=== PATIENT | female | born 1955 | race Caucasian/White ===

== ENCOUNTER 2020-11-05 11:31 | Observation (INO) | payer BC ==
[~2020-11-05] VITALS: Ht 167.6 cm; Wt 88.2 kg
--- NOTE | ~2020-11-05 | HEMODYNAMI ---
PATIENT:ROYAL XIE MEDICAL RECORD: [id number] : 57 [id number] ADMISSION DATE: 11/05/20 Generatedon:113:51 Patient name: ROYAL XIE Patient #: [id number] : 1955 Date of study: 11/05/2020 Page: Of Hemodynamic Procedure Report Patient Data Patient Demographics Procedure consent was obtained First Name: ROYAL Gender: Female Last Name: ROJAS : 1955 Patient #: [id number] Age: 65 year(s) Race: SSN: [id number] Additional ID: [id number] Contact details [address]: [address] [place] [address] State: [place] City: [place] Zip code: [address] Admission Admission Data Admission Date: 11/05/2020 Admission Time: 11:31 Arrival Date: 11/05/2020 Arrival Time: 11:31 Admit Source: Other Insurance Payor: Private Room #: D.[id number] health insurance [facility] #: [id number] Procedure Procedure Types Cath Procedure Diagnostic Procedure LHC LH w/Coronaries FFR/IVUS FFR Initial Sedation Charges Moderate Sedation 25-39 minutes PCI Procedure Coronary Stent Coronary Stent Initial Hemochron ACT Test Procedure Description Procedure Date Procedure Date: 11/05/2020 Procedure Start Time: 13:16 Procedure End Time: 13:45 Procedure Staff Name Function Lincoln Randolph MD Performing Physician Renetta Murphy RT Monitor Cindy Zarate RT Scrub Sky Bullock RN Nurse Procedure Data Cath Procedure Fluoroscopy Diagnostic fluoroscopy Total fluoroscopy Time: 3.9 time: 3.9 min min Diagnostic fluoroscopy Total fluoroscopy dose: 912 dose: 912 mGy mGy Contrast Material Contrast Material Type Amount (ml) Isovue 300 912 Entry Location Entry Primary Successful Side Size Upsize Upsize Entry Closure Succes sful Closure Location (Fr) 1 (Fr) 2 (Fr) Remarks Device Remarks Femoral Right 5 Fr 6 Fr Exoseal artery Short Estimated blood loss: 5 ml Diagnostic catheters Device Type Used For End Catheter Placement MULTIPACK JL 4.0 5Fr Left Coronary catheter Angiography MULTIPACK 3DRC 5Fr Right Coronary catheter Angiography MULTIPACK Pigtail 5 Fr Multi-vessel catheter Angiography MULTIPACK 3DRC 5Fr Right Coronary catheter Angiography Procedure Complications No complications Procedure Medications Medication Administration Route Dosage 0.9% NaCl I.V. 100 ml/hr Oxygen etCO2 Nasal cannula 2 l/min Heparin Flush Bag added to field 2 bags (1000units/500ml NS) Lidocaine 2% added to field 20 Versed I.V. 1 mg Fentanyl I.V. 50 mcg Versed I.V. 1 mg Fentanyl I.V. 50 mcg Heparin Bolus I.V. 5000 units Integrilin (Bolus I.V. 7.9 ml 2mg/ml) Integrilin (Bolus wasted 2.1 ml 2mg/ml) Plavix P.O. 600 mg Hemodynamics Rest Heart Rate: 68 (bpm) Pressure Samples Time Site Value (mmHg) Purpose Heart Use Rate(bpm) 13:23 LV 114/29,33 Snapshot 70 13:23 AO 173/77(115) Pullback 64 Gradients Valve Time Site Site 2 Mean SEP/DFP Peak To Heart Use 1 (mmHg) (sec/min) Peak Rate (mmHg) (bpm) Aortic 13:23 LV AO 126 40 64 173/77(115) Calculations Valve P-P Mean Valve Index Valve Source Name Gradient Area Flow (cm2) Aortic 126 126 Snapshots Pre Cath Intra NCS Post Cath Vital Signs Time Heart Resp SPO2 etCO2 NIBP (mmHg) Rhythm Pain Sedation Rate (ipm) (%) (mmHg) Status Level (bpm) 13:03:13 66 13 100 42.3 133/68(104) NSR 0 (11) 10(A) , No pain 13:07:27 66 11 98 17.8 130/66(110) NSR 0 (11) 10(A) , No pain 13:11:39 64 14 98 17 127/68(107) NSR 0 (11) 10(A) , No pain 13:15:49 63 10 97 45.9 138/71(107) NSR 0 (11) 10(A) , No pain 13:20:05 68 15 98 44.5 136/64(98) NSR 0 (11) 10(A) , No pain 13:24:21 68 12 97 39.2 141/67(106) NSR 0 (11) 10(A) , No pain 13:28:39 66 12 98 39.2 132/63(116) NSR 0 (11) 10(A) , No pain 13:32:49 75 10 97 37 142/75(112) NSR 0 (11) 10(A) , No pain 13:37:42 69 10 98 44.4 131/70(95) NSR 0 (11) 10(A) , No pain 13:42:43 72 13 98 43 162/87(129) NSR 0 (11) 10(A) , No pain Medications Time Medication Route Dose Verified Delivered Reason Notes Effectiveness by by 13:02:47 0.9% NaCl I.V. 100 Sky Sky Per physician ml/hr Ara Bullock RN RN 13:02:56 Oxygen etCO2 2 Sky Sky for low 02 sats Nasal l/min Ara Bullock cannula RN RN 13:03:06 Heparin Flush added 2 Sky Sky used for Bag to bags rAa Bullock procedure (1000units/500ml RN RN NS) 13:03:16 Lidocaine 2% added 20ml Sky Sky for local to vial Lorry Bullock anesthetic RN RN 13:04:14 Versed I.V. 1 mg Sky Sky for sedation Ara Bullock RN RN 13:04:22 Fentanyl I.V. 50 Sky Sky for sedation mcg Ara Bullock RN RN 13:17:50 Versed I.V. 1 mg Sky Sky for sedation Ara Bullock RN RN 13:17:56 Fentanyl I.V. 50 Sky Sky for sedation mcg Ara Bullock RN RN 13:27:16 Heparin Bolus I.V. 5000 Sky Sky for units Ara Bullock anticoagulation RN RN 13:35:09 Integrilin I.V. 7.9 Sky Sky for (Bolus 2mg/ml) ml Ara Bullock antiplatelet RN RN therapy 13:35:25 Integrilin wasted 2.1 Sky Sky to sharp's (Bolus 2mg/ml) ml Ara Bullock RN RN 13:43:13 Plavix P.O. 600 Sky Sky for mg Ara Bullock antiplatelet RN RN therapy Procedure Log Time Note 12:31:18 Informed consent obtained and on chart 12:31:59 Admit Source: Other 12:32:01 Arrival Date: 11/05/2020 11:31:00 AM 12:32:32 Insurance Payor : Private health insurance 12:33:48 Diagnostic Cath Status : Urgent 12:42:06 Procedure Status Urgent Heart Cath (IP). 12:42:12 Sky Bullock RN sent for patient. Start room use. 12:42:13 Time tracking: Regular hours (M-F 7:00 - 5:00) 12:42:17 Plan of Care:Hemodynamics will remain stable., Cardiac rhythm will remain stable., Comfort level will be maintained., Respiratory function will remain adequate., Patient/ family verbilizes understanding of procedure., Procedure tolerated without complication., Recovers from procedure without complications.. 12:55:03 Patient received from Med II to CCL 2 Alert and oriented. Tansferred to table in Supine position. 12:55:04 Warm blankets applied, and lc hugger turned on for patient comfort. 12:55:04 Correct patient and procedure confirmed by team. 12:55:05 ECG and BP/O2 sat monitors applied to patient. 13:02:04 Baseline sample Acquired. 13:02:04 Vital chart was started 13:02:14 Rhythm: sinus rhythm 13:02:16 Full Disclosure recording started 13:02:18 H&P Date Dictated: 11/05/2020 ER History on chart.. 13:02:20 Pre-procedure instructions explained to patient. 13:02:21 Pre-op teaching completed and patient verbalized understanding. 13:02:23 Family unavailable. 13:02:25 Patient NPO since Midnight. 13:02:27 Is the patient allergic to Iodine/contrast media? No. 13:02:29 Was the patient premedicated? Yes 13:02:30 Is patient on blood thinner?No 13:02:32 Patient diabetic? Yes. 13:02:33 If diabetic: On Metformin? Yes 13:02:36 If on Metformin: Last Dose? 11/04/2020 13:02:39 Previous problem with sedation/anesthesia? No ? 13:02:41 Snore? Yes 13:02:42 Sleep apnea? Yes 13:02:43 Deviated septum? No 13:02:44 Opens mouth fully? Yes 13:02:45 Sticks out tongue? Yes 13:02:47 0.9% NaCl 100 ml/hr I.V. was administered by Sky Bullock RN; Per physician; Verbal order read back and verified. 13:02:47 Airway obstruction? No ? 13:02:50 Dentures? No ? 13:02:56 Oxygen 2 l/min etCO2 Nasal cannula was administered by Sky Bullock RN; for low 02 sats; Verbal order read back and verified. 13:02:56 Pre procedure: right dorsailis pedis pulse 2+ Normal; easily identifiable; not easily obliterated 13:02:58 Pre procedure: left dorsailis pedis pulse 2+ Normal; easily identifiable; not easily obliterated 13:03:00 Patient pain scale 0/10 ?. 13:03:06 Heparin Flush Bag (1000units/500ml NS) 2 bags added to field was administered by Sky Bullock RN; used for procedure; Verbal order read back and verified. 13:03:06 IV patent on arrival in right forearm with 0.9% NaCl at [facility]. 13:03:16 Lidocaine 2% 20ml vial added to field was administered by Sky Bullock RN; for local anesthetic; Verbal order read back and verified. 13:03:21 Lab results completed and on chart. 13:03:25 Stress Test: no; N/A ? 13:03:29 Right groin area was prepped with chlora-prep and draped in sterile fashion 13:03:31 Alarms reviewed by R. N. 13:03:31 Sharps counted by scrub and verified by R.N. 13:03:33 Physician arrived 13:03:33 --------ALL STOP TIME OUT------ 13:03:33 Final Timeout: patient, procedure, and site verified with staff and physician. All members of the team are in agreement. 13:03:35 Right groin site verified by team. 13:03:38 Fire Safety Assessment: A--An alcohol-based skin anteseptic being used preoperatively., C--Open oxygen or nitrous oxide is being used., D--An ESU, laser, or fiber-optic light is being used. 13:03:45 Physical assessment completed. ASA score P 2 - A patient with mild systemic disease as per Lincoln Randolph MD. 13:04:14 Versed 1 mg I.V. was administered by Syk Bullock RN; for sedation; Verbal order read back and verified. 13:04:18 Sedation plan: IV Moderate Sedation Medication:Versed, Fentanyl 13:04:22 Fentanyl 50 mcg I.V. was administered by Sky Bullock RN; for sedation; Verbal order read back and verified. 13:07:58 Use device set Femoral Dx 13:07:59 ACIST Syringe (73762) opened to sterile field. 13:08:00 Bag Decanter (2002S) opened to sterile field. 13:08:00 Medline Cath Pack ([id number]) opened to sterile field. 13:08:01 ACIST Hand Control (32612) opened to sterile field. 13:08:02 ACIST Manifold (10864) opened to sterile field. 13:08:02 DIAGNOSTIC Multipack 5Fr catheter set (CJ2256) opened to sterile field. 13:08:03 Tegaderm 4 x 4 (1626W) opened to sterile field. 13:08:04 SHEATH 5FR [place] (CEG622) opened to sterile field. 13:08:05 EMERALD Guide Wire (283-882) opened to sterile field. 13:16:25 Procedure started. 13:16:29 Local anesthetic to right femoral artery with Lidocaine 2% by Lincoln Randolph MD.INITIAL ACCESS ONLY 13:16:37 A 5 Fr sheath was inserted into the Right Femoral artery 13:17:25 A MULTIPACK JL 4.0 5Fr catheter was advanced over the wire and used for Left Coronary Angiography. 13:17:50 Versed 1 mg I.V. was administered by Sky Bullock RN; for sedation; Verbal order read back and verified. 13:17:56 Fentanyl 50 mcg I.V. was administered by Sky Bullock RN; for sedation; Verbal order read back and verified. 13:18:57 LCA angiography performed. 13:19:00 Injector settings: Ml/sec: 3, Volume: 6, 13:20:51 Catheter removed. 13:20:57 A MULTIPACK 3DRC 5Fr catheter was advanced over the wire and used for Right Coronary Angiography. 13:22:06 RCA angiography performed. 13:22:09 Injector settings: Ml/sec: 3, Volume: 6, 13:22:20 Catheter removed. 13:22:35 A MULTIPACK Pigtail 5 Fr catheter was advanced over the wire and used for Multi-vessel Angiography. 13:23:27 LV hemodynamics recorded. 13:23:28 LV gram done using HESTER 13:23:31 Injector settings: Ml/sec: 5, Volume: 15, 13:23:47 EF : 55 % 13:24:33 Catheter removed. 13:24:34 Proceeding to intervention. 13:25:27 [place] OmniWire (87042) opened to sterile field. 13:25:29 INFLATOR Merit BasixCompak (QD9494) opened to sterile field. 13:25:30 SHEATH 6FR [place] (GQT687) opened to sterile field. 13::31 Sheath upsized to a 6 Fr Short. 13:26:34 ACC Pre-intervention JUANITA Flow is 3. 13:26:47 A MULTIPACK 3DRC 5Fr catheter was advanced over the wire and used for Right Coronary Angiography. 13:26:53 Pressure wire advanced. 13:26:56 Baseline FFR 1. 13:27:16 Heparin Bolus 5000 units I.V. was administered by Sky Bullock RN; for anticoagulation; Verbal order read back and verified. 13:28:19 Zero performed for pressure channel P1 13:28:24 Zero performed for pressure channel P1 13:29:42 Wire advanced across lesion. 13:30:48 mRCA lesion measured at 0.93 with IFR 13:31:06 Wire removed. 13:31:15 Catheter removed. 13:32:06 BMW 300cm Joy 2 J wire ([id number]) opened to sterile field. 13:32:34 GUIDE 6FR JL 4.0 catheter ([id number]) opened to sterile field. 13:32:48 6 Fr jl 4 guide catheter was inserted over the wire 13:32:52 bmw wire advanced. 13:35:09 Integrilin (Bolus 2mg/ml) 7.9 ml I.V. was administered by Sky Bullock RN; for antiplatelet therapy; Verbal order read back and verified. 13:35:25 Integrilin (Bolus 2mg/ml) 2.1 ml wasted was administered by Sky Bullock RN; to sharp's; Verbal order read back and verified. 13:38:13 Wire advanced across lesion. 13:39:01 Place stent Inflation Number: 1 A JAMES RX 3.0 x 26 stent ([id number]) was prepped and advanced across the Prox LAD 80. The stent was deployed at 14 PARVEZ for 0:30 (min:sec) 0. 13:39:52 Stent catheter was removed intact over wire. 13:39:53 Wire removed. 13:39:53 Guide catheter removed. 13:40:11 EXOSEAL 6Fr (EX600) opened to sterile field. 13:40:24 Sheath removed intact; hemostasis achieved with Exoseal to the Right Femoral artery. 13:40:26 Procedure ended.(Physican Out) 13:43:13 Plavix 600 mg P.O. was administered by Sky Bullock RN; for antiplatelet therapy; Verbal order read back and verified. 13:43:19 Fluoroscopy time 03.90 minutes. 13:43:23 Fluoroscopy dose: 912 mGy 13:43:23 Flurop Dose total: 912 13:43:31 Dose Area Product 36365 mGy/cm. 13:43:36 Contrast amount:Isovue 300 912ml. 13:43:38 Maximum allowable dose exceeded? No. 13:43:39 Sharps counted by scrub and verified by R.N. 13:43:42 Insertion/operative site no bleeding no hematoma. 13:43:46 Post-op/insertion site Right Femoral artery dressed using a 4 x 4 and Tegaderm. 13:43:48 Post Procedure Pulses reassessed and unchanged 13:43:53 Post procedure rhythm: unchanged. 13:43:55 Estimated blood loss: 5 ml 13:43:58 Post procedure instruction explained to patient.Patient verbalizes understanding. 13:43:59 Patient needs reinforcement of post procedure teaching. 13:44:20 Procedure type changed to Cath procedure, Diagnostic procedure, LHC, [facility] w/Coronaries, FFR/IVUS, FFR Initial, Sedation Charges, Moderate Sedation 25-39 minutes, PCI procedure, Coronary Stent, Coronary Stent Initial, Hemochron ACT Test 13:45:01 Procedure and supply charges have been captured, reviewed, submitted and are correct. 13:45:05 Procedure Complication : No complications 13:45:07 Vital chart was stopped 13:45:09 [facility] Findings: MVD- PCI performed (see procedure note) 13:45:11 Operative report dictated upon procedure completion. 13:45:11 See physician's report for complete and final results. 13:45:17 Report given to [facility]. 13:45:20 Patient transfered to [facility] with Stretcher. 13:45:25 Procedure ended. 13:45:25 Full Disclosure recording stopped 13:45:35 ACC-PCI Only Patient was given prescriptions, or instructed by Lincoln Randolph MD to start/continue the following medications upon discharge: Plavix 13:45:36 End room use (Document Last) 13:45:46 ACT drawn and resulted at 221 seconds. (normal therapeutic range 180-240 seconds). 13:50:34 End room use (Document Last) 13:50:58 End room use (Document Last) Intervention Summary Intervention Notes Time ActionType Lesion and Equipment Used Action# Pressure Duration Attributes 13:39:[address] Place stent Prox LAD JAMES RX 3.0 x 1 14 00:30 26 stent ([id number]) Device Usage Item Name Manufacture Quantity Catalog Hospital Part [facility] Lot# / Number Charge Number Stock Stock Serial# Code ACIST Syringe Acist 1 06481 322492 763217 298081 20 (72760) Medical Systems Inc Bag Decanter Microtek 1 2002S 185264 21522 517904 5 (2001S) Medical Inc. Medline Cath Medline 1 [id number] 550956 53009 781869 5 Pack ([id number]) ACIST Hand Acist 1 08954 947395 475809 319119 5 Control Medical (11495) Systems Inc ACIST Manifold Acist 1 41529 634367 348387 407542 5 (92191) Medical Systems Inc DIAGNOSTIC Cardinal 1 DO2103 797869 72010 630096 30 Multipack 5Fr Health catheter set ([id number]) Tegaderm 4 x 4 3M 1 1626W 870245 141844 168587 5 (1626W) SHEATH 5FR Terumo 1 JRK768 104418 173198 334553 5 [place] (OMU971) EMERALD Guide Cardinal 1 502-455 905958 654396 009796 5 Wire (502-455) Health MULTIPACK JL Cardinal 1 474207 5 4.0 5Fr Health catheter MULTIPACK 3DRC Cardinal 1 233180 5 5Fr catheter Health MULTIPACK Cardinal 1 687017 5 Pigtail 5 Fr Health catheter [place] 1 [id number] 098750 64611 9992 5 OmniWire (76596) INFLATOR Merit Merit 1 PY5694 542249 764061 211531 15 [facility] (SK5602) SHEATH 6FR Terumo 1 [id number] 646487 834256 081228 40 [place] (RDH187) BMW 300cm Mao 1 [id number] 471088 866781 064359 5 Joy 2 J Vascular wire ([id number]) GUIDE 6FR JL Medtronic 1 [id number] 502227 62639 127108 1 4.0 catheter (AF6FB74) JAMES RX 3.0 x Medtronic 1 [id number] 746288 7933859 966289 5 [id number] 26 stent ([id number]) EXOSEAL 6Fr Cardinal 1 EX600 066659 697121 049025 10 (EX600) Health Signature Audit [place] Stage Time Signature Unsigned Intra-Procedure 11/05/2020 Renetta Murphy 1:50:34 PM RT(R) Intra-Procedure 11/05/2020 Sky 1:50:58 PM Ara RN Intra-Procedure 11/05/2020 Lincoln Oliver 1:51:14 PM Betito ARAMBULA Signatures Performing Physician : Signature : Lincoln Randolph MD Date : Time : Monitor : Renetta Murphy RT Signature : Date : Time : Nurse : Sky Bullock Signature : RN Date : Time : [facility] [address] [place] [address]
[2020-11-05] MEDS ORDERED: GLUCOPHAGE500 MG PO (12:06)
[2020-11-05] MEDS ORDERED: ALTACE10 MG PO (12:07)
[2020-11-05] MEDS ORDERED: JARDIANCE10 MG PO (12:07)
[2020-11-05] MEDS ORDERED: TOPROL XL25 MG PO (12:08)
[2020-11-05] MEDS ORDERED: PRAVACHOL40 MG PO (12:08)
[2020-11-05] MEDS ORDERED: BAYER CHEWABLE81 MG PO (12:09)
[2020-11-05] MEDS ORDERED: HUMALOG 30100 UNITS/ SC (12:09)
[2020-11-05 12:22] VITALS: BP 139/70
[2020-11-05 12:29] VITALS: BP 139/70; Ht 167.6 cm; Wt 88.2 kg
--- NOTE | 2020-11-05 13:26 | NUR ---
1320- LAB DRAWN AFTER GETTING ACCESS TO FEMORAL ARTERY FOR [facility] PROCEDURE. SENT TO LAB VIA TUBE.
[2020-11-05 13:45] LABS: BASOPHILS 0.1 % (0-2); EOSINOPHILS 2.6 % (0-7); HEMATOCRIT 39.4 % (36.0-48.0); HEMOGLOBIN 12.5 g/dL (12-16); IMMATURE GRANULOCYTES 0.2 % (0-5); LYMPHOCYTE ABS# 2.63 10x3/uL (1.18-3.74); LYMPHOCYTES 32.7 % (15-50); MCH 28.9 pg (26.0-34.0); MCHC 31.7 g/dL (31.0-37.0); MEAN PLATELET VOLUME 9.7 fL (7.4-10.4); MONOCYTES 7.5 % (2-11); NEUTROPHIL ABS# 4.58 10x3/uL (1.56-6.13); NEUTROPHILS 56.9 % (40-80); PLATELET COUNT 251 10x3/uL (130-400); RBC 4.33 10x6/uL (4.00-5.40); RDW 13.2 % (11.5-14.5); WBC 8.1 10x3/uL (4.8-10.8)
[2020-11-05 14:01] LABS: ALBUMIN 3.6 g/dL (3.4-5.0); ALKALINE PHOSPHATASE 54 U/L (30-120); ALT (SGPT) 28 U/L (10-68); BILIRUBIN - TOTAL 0.23 mg/dL (0.2-1.3); CALC OSMOLALITY 285 mosm/kg (275-300); CALCIUM 8.8 mg/dL (8.5-10.1); CARBON DIOXIDE 23.7 mmol/L (21.0-32.0); CHLORIDE - SERUM 106 mmol/L (98-107); CHOL - HDL RATIO 2.9 ratio (2.3-4.1); CHOLESTEROL, TOTAL 111 mg/dL (0-200); CREATININE - SERUM 0.7 mg/dL (0.6-1.3); GLUCOSE 98 mg/dL (74-106); HDL CHOLESTEROL 38 mg/dL (32-96); LDL CHOLESTEROL 56 mg/dL (0-100); LDL-HDL RATIO 1.5 ratio (1.5-3.5); POTASSIUM - SERUM 4.1 mmol/L (3.5-5.1); PROTEIN - SERUM 6.8 g/dL (6.4-8.2); SODIUM 143 mmol/L (136-145); TRIGLYCERIDE 89 mg/dL (30-200); UREA NITROGEN 14 mg/dL (7-18); eGFR NON AFRICAN AMERICAN 89 mL/min (90-120)
[2020-11-05 14:09] LABS: CKMB 0.6 U/L (0.0-3.6); CREATINE KINASE 54 UL (21-215)
[2020-11-05 14:10] LABS: TROPONIN-I < 0.017 ng/mL (0.000-0.060)
--- NOTE | 2020-11-05 14:12 | NUR ---
BACK FROM OFFSET LITHOGRAPHIC PRESS OPERATOR. VS WNL. RIGHT GROIN STABLE WITHOUT BLEEDING OR HEMATOMA NOTED. WILL MONITOR.
[2020-11-05 15:00] VITALS: BP 140/47
--- NOTE | 2020-11-05 16:47 | HP ---
PATIENT: ROYAL XIE MEDICAL RECORD: [id number] ACCOUNT: [id number] LOCATION:[address] : 57 ADMISSION DATE: 11/05/20 PCP: GREGORIO HENRY MD HISTORY AND PHYSICAL EXAMINATION REASON FOR ADMISSION: Chest pain. HISTORY OF PRESENT ILLNESS: The patient is a 65-year-old female with history of metabolic syndrome, essential hypertension and hyperlipidemia. Her A1c has been well controlled at 7 most recently. She states she has been fatigued for the last 2 months and 3 days ago on Wednesday she was at rest and had substernal discomfort that lasted about 30 minutes to 45 minutes. It did radiate into both arms and then resolved. She is not nauseated, diaphoretic and denied shortness of breath. She has had little twinges of pain in her left chest since that time. She has had no dizziness, palpitations. She came to the office today for routine diabetic followup and admitted to these symptoms. An EKG was grossly abnormal with Q-waves inferiorly and anterolaterally and no old EKG to compare. Because of concern for acute coronary syndrome subacute, she is admitted to the hospital for cardiac enzymes and cardiology consultation. PAST MEDICAL HISTORY: Type 2 diabetes mellitus, essential hypertension, hyperlipidemia, GERD, history of insomnia and mild depression. PAST SURGICAL HISTORY: Negative. FAMILY HISTORY: Father at 75 of CAD, NM and diabetes. Mother at 91, diabetes, stroke and hyperlipidemia. Daughter has CAD and diabetes. Brother and sister both have had MIs and CAD. Paternal grandfather . Grandmother , had breast cancer. SOCIAL HISTORY: She is , nonsmoker, nondrinker, lives with her . 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 ALLERGIES: PRAVASTATIN, ZOCOR, LATEX AND SULFA. CURRENT MEDICATIONS: Paroxetine 20 mg a day, metformin 500 mg 2 tablets by mouth b.i.d. before meals, Ramipril 5 mg daily, Pravastatin 40 mg at bedtime, Jardiance 10 mg p.o. daily, sliding scale insulin before meals and at bedtime, metoprolol 25 mg ER daily, Mirapex 0.125 mg at bedtime p.r.n. restless leg syndrome, Toujeo 50 units subcutaneously daily, aspirin 81 mg daily, fish oil 1000 mg p.o. b.i.d. REVIEW OF SYSTEMS: GENERAL: Has fatigue for the last 2 months. No fever or weight change. HEENT: No recent visual change, sinus congestion, sore throat. RESPIRATORY: No SOB or cough. CARDIAC: Substernal chest pain that mentioned 4 nights ago that lasted 35 to 45 minutes, associated with bilateral arm discomfort. Since that time, she has had some fleeting chest pain, but non-pressure like. Denies palpitations. Denies any exertional chest pain. GASTROINTESTINAL: No recent dyspepsia, change in stools or blood per rectum. GENITOURINARY: No incontinence. GYNECOLOGIC: No vaginal bleeding. ENDOCRINE: Denies polyuria, polydipsia, heat or cold intolerance. NEUROLOGIC: No history of stroke, TIA, vascular headaches or seizures. HISTORY AND PHYSICAL [id number] ROYAL XIE PHYSICAL EXAMINATION: GENERAL: Alert, oriented, 65-year-old female at this time, in no acute distress. VITAL SIGNS: Blood pressure 158/76, weight 195 pounds, height 66 inches, BMI is 31.5, sats 98% on room air. Temperature is 98 degrees Fahrenheit. HEENT: Eyes are clear. Oropharynx unremarkable. NECK: Supple, without bruits, masses, JVD. CHEST: Chest wall is nontender. Chest is clear. HEART: Regular rate and rhythm with a faint mitral click. PMI is appropriate. LUNGS: Clear throughout. ABDOMEN: Soft, nontender. No bruits appreciated. EXTREMITIES: No CCE. NEUROLOGIC: Intact bilaterally and symmetrically. DIAGNOSTIC DATA: EKG shows large Q-waves inferiorly and anterolaterally suggesting subacute myocardial infarction. LABORATORY DATA: Currently pending. ASSESSMENT: 1. Chest pain suggesting angina. 2. Acute coronary syndrome. 3. Diabetes mellitus. 4. Hyperlipidemia. 5. Hypertension. 6. Strong family history of coronary artery disease. 7. Gastroesophageal reflux disease. 8. Possible statin myalgias. PLAN: The patient is being direct admitted to the medical floor for telemetry, hold n.p.o. Will be seen by Dr. Henderson this afternoon for potential cardiac catheterization. TRANSINT:[id number] Voice Confirmation ID: [id number] DOCUMENT ID: [id number] GREGORIO HENRY MD at 1647 CC: [id number] DICTATION DATE: 11/05/20 1251 SKIN CARE CONSULTANT: 11/05/20 1356 ADM IN [facility] [address] [place] [id number]
[2020-11-05] MEDS ORDERED: NITROQUICK0.4 MG SL (16:49)
[2020-11-05] MEDS ORDERED: ASPIRIN EC325 MG PO (16:50)
[2020-11-05] MEDS ORDERED: PLAVIX75 MG PO (16:51)
[2020-11-05] MEDS ORDERED: LANTUS INS100 UNITS/ SC (16:51)
--- NOTE | 2020-11-05 18:03 | NUR ---
BED REST UP. GROIN STABLE. IV AND TELEMETRY DCD FOR DC.
--- NOTE | 2020-11-05 18:09 | NUR ---
IV AND TELEMETRY DCD. DC PLANS GIVEN. UNDERSTANDING VOICED.
--- NOTE | 2020-11-05 18:23 | NUR ---
ESCRTED TO CAR BY W/C.
--- NOTE | 2020-11-06 10:01 | CN ---
PATIENT NAME:ROYAL XIE MEDICAL RECORD: [id number] : 57 LOCATION:[facility] D.2116 ADMIT DATE: 11/05/20 ACCOUNT: [id number] CONSULTING PHYSICIAN: EUSEBIA WRIGHT MD REFERRING PHYSICIAN: GREGORIO HENRY MD DATE OF CONSULTATION: 11/05/2020 HISTORY OF PRESENT ILLNESS: A 65-year-old female with history of hypertension, diabetes mellitus, dyslipidemia, early onset of chest pain intermittently since Wednesday, pressure and tightness radiating to the jaw, saw Dr. Henry in the office, found to have new onset left bundle, admitted for further evaluation. PAST MEDICAL HISTORY: Includes: 1. History of hypertension. 2. Hyperlipidemia. 3. Diabetes mellitus. HOME MEDICATIONS: Typically include metoprolol 25 mg p.o. every day, pravastatin 40 mg p.o. at bedtime, Ramipril 10 mg p.o. every day, aspirin 81 every day, Jardiance 10 mg p.o. every day, insulin, metformin 1 gram b.i.d. SOCIAL HISTORY: Nonsmoker, nondrinker. Prior to last month was trying to exercise on a regular basis. She is a nonsmoker. Easily takes care of all her ADLs REVIEW OF SYSTEMS: The patient reports easy bruising but reports no swollen glands. The patient reports no fever, no night sweats, no significant weight gain, no significant weight loss. No significant exercise tolerance. The patient reports no dry eyes, no irritation, no vision change. Patient reports no difficulty hearing and no ear pain. Patient reports no frequent nose bleeds or nose and sinus problems. Patient reports on arm pain on exertion. No shortness of breath while lying down. No history of heart murmur. Patient reports no cough, no wheezing or coughing up blood. Patient reports no abdominal pain, no vomiting. Normal appetite. No diarrhea and not vomiting blood. No nausea and no constipation. Patient reports no incontinence. No difficulty urinating. No hematuria. No increased frequency. Patient reports no muscle aches. No weakness, no arthralgias, no back pain. No swelling of the extremities. Patient reports no abnormal mole, no jaundice, no rashes. Reports no loss of consciousness. No weakness and no numbness. No seizures, dizziness, or headaches. The patient reports no depression, no sleep disturbance, feeling safe in a relationship and no alcohol abuse. Patient reports on fatigue. Reports no runny nose or sinus pressure. No itching, no hives, and no frequent sneezing. ALLERGIES: SULFA AND LATEX. PHYSICAL EXAMINATION: GENERAL: No acute distress, appears stated age. VITAL SIGNS: Blood pressure 139/70, pulse 70 and regular. HEENT: Normocephalic, atraumatic. NECK: No bruits are noted. HEART: Regular. Questionable S4 gallop. LUNGS: Good air excursion. ABDOMEN: Soft, nontender. EXTREMITIES: Pulses well preserved, 2+ with no edema. CONSULT REPORT [id number] ROYAL XIE DIAGNOSTIC DATA: EKG shows new left bundle. IMPRESSION: Acute coronary syndrome, multiple risk factors. PLAN: For angiography and intervention based on above. TRANSINT:[id number] Voice Confirmation ID: [id number] DOCUMENT ID: [id number] EUSEBIA WRIGHT MD at 1001 CC: [id number] DICTATION DATE: 11/05/20 1353 COIL SHAPER: 11/05/20 1837 DIS IN 11/05/20 [facility] [address] [place] [address]
--- NOTE | 2020-11-06 10:01 | OP ---
PATIENT NAME: ROYAL XIE MEDICAL RECORD: [id number] :57 LOCATION:D.M2 D.6 ADMISSION DATE:11/05/20 SURGEON: EUSEBIA WRIGHT MD DATE OF OPERATION: 11/05/2020 PROCEDURE: Left heart catheterization plus IFR wire plus stenting to the LAD, right femoral artery approach. CATHETERS: A 5-Gambian sheath, 5/4 left and right Kentrell, 5/4 pig. The procedure was well tolerated. The patient returned to narayanan, sheath removed. ExoSeal device was placed. FINDINGS: Left ventriculography in 30-degree HESTER view: Normal wall motion and normal systolic function. CORONARY ANATOMY: Left main: Left main is free of disease. LAD: Has a long diffuse typical diabetic 80% stenosis. Circumflex: Circumflex is free of disease. Right coronary artery: Has a questionable stenosis; however, this is not significant via the IFR wire. PLAN: Intervention of the LAD momentarily. DESCRIPTION: A 5-Gambian sheath was exchanged for a 6-Gambian sheath. A JL4 guiding catheter provided excellent guide catheter support followed by 300 cm BMW wire was placed across the tightly occluded LAD, distal portion of vessel. Stent deployed was a long 3.0 x 26 mm Lalo drug-eluting stent up to 14 atmospheres for 45 seconds. Final angiography shows excellent resolution of 80% stenosis and no significant residual. JUANITA flow was 3 throughout the procedure. Heparin and Integrilin were used during the case. Sheath closed with ExoSeal device. Plavix loaded in the lab. TRANSINT:[id number] Voice Confirmation ID: [id number] DOCUMENT ID: [id number] EUSEBIA WRIGHT MD at 1001 CC: [id number] DICTATION DATE: 11/05/20 1354 POWERTRAIN CALIBRATION ENGINEER: 11/05/20 1847 DIS IN 11/05/20 [facility] [address] [place] [address]
== END 2020-11-05 18:23 | disposition home or self-care (01) ==
LOC: D.M2 11:31 → OBSVTIME 11:40 → D.M2 18:23
PROVIDERS: ADMIT Family Medicine; ATTEND Family Medicine
DX: I25.110 Atherosclerotic heart disease of native coronary artery with unstable angina pectoris (principal); E88.81 Metabolic syndrome and other insulin resistance